=== PATIENT | female | born 1990 | race Caucasian/White ===

== ENCOUNTER 2023-09-29 10:15 | Outpatient (CLI) | payer BC, SELFPAY ==
--- NOTE | 2023-09-29 10:30 | XR_ITS ---
FINAL REPORT CLINICAL HISTORY: RT KNEE PAIN COMPARISON: None FINDINGS: Two views of the right knee were obtained. There is no evidence of fracture or dislocation. The bony alignment is normal. The joint spaces are preserved. There is no evidence of joint effusion. No localized soft tissue abnormality is identified. IMPRESSION: No acute abnormality identified. Reviewed, Interpreted and Dictated by Uriel Doe III, MD Transcribed by Ysabel Desouza Authenticated and [facility]
--- NOTE | 2023-09-29 10:30 | XR_ITS ---
FINAL REPORT CLINICAL HISTORY: LT KNEE PAIN COMPARISON: None FINDINGS: Two views of the left knee were obtained. There is no evidence of fracture or dislocation. The bony alignment is normal. The joint spaces are preserved. There is no evidence of joint effusion. No localized soft tissue abnormality is seen. There is no evidence of foreign body. IMPRESSION: No acute abnormality identified. Reviewed, Interpreted and Dictated by Uriel Doe III, MD Transcribed by Ysabel Desouaz Authenticated and . [facility]
== END 2023-09-29 23:59 | disposition home or self-care (01) ==
LOC: RAD 10:22
PROVIDERS: PCP Family Medicine; Visit Provider Family Medicine
DX: M25.561 Pain in right knee (principal); M25.562 Pain in left knee
CPT/HCPCS: 73560